=== PATIENT | male | born 2000 | race American Indian/Alaskan Native ===

== ENCOUNTER 2020-10-22 13:05 | Observation (INO) | payer SELFPAY ==
[2020-10-22] MEDS ORDERED: dexAMETHasone 4 MG/ML VIAL IV ONE (14:30)
[2020-10-22] MEDS ORDERED: SODIUM CHLORIDE 0.9% 1000 ML 1,000 ML IV ONE (14:30)
--- NOTE | 2020-10-22 14:36 | Emergency Department Report ---
ED ENT HPI - General Chief complaint: Sore Throat Stated complaint: SORE THROAT PAIN Time Seen by Provider: 10/22/20 14:14 Source: patient Mode of arrival: Ambulatory Limitations: No Limitations - History of Present Illness Initial comments: 19-year-old male with no past medical history. He reports 3 days of severe sore throat not relieved with any [id number] medicines. He denies fever cough chest pain or shortness of breath MD complaint: sore throat -: days(s) (3) Location: throat Severity: severe Severity scale (0 -10): 8 Quality: aching Consistency: constant Improves with: none (using throat sprays,cough drops with no improvement) Worsens with: none Associated Symptoms: pain with swallowing, sore throat. denies: fever, cough, gum swelling, toothache, discharge from ear, rhinorrhea - Related Data Allergies Allergy/AdvReac Type Severity Reaction Status Date / Time No Known Allergies Allergy Unverified 05/04/20 12:36 ED Dental HPI - General Chief complaint: Sore Throat Stated complaint: SORE THROAT PAIN Time Seen by Provider: 10/22/20 14:14 Source: patient Mode of arrival: Ambulatory Limitations: No Limitations - History of Present Illness MD complaint: sore throat, difficulty swallowing -: days(s) (3) Severity: severe Quality: aching Improves with: none Worsens with: swallowing, eating - Related Data Allergies Allergy/AdvReac Type Severity Reaction Status Date / Time No Known Allergies Allergy Unverified 05/04/20 12:36 ED Review of Systems ROS: Stated complaint: SORE THROAT PAIN Other details as noted in HPI Comment: All other systems reviewed and negative Constitutional: no symptoms reported. denies: chills, fever, malaise ENT: throat pain Respiratory: denies: cough, shortness of breath, SOB with exertion, wheezing Cardiovascular: denies: dyspnea on exertion Endocrine: denies: no symptoms reported Gastrointestinal: denies: abdominal pain, nausea, vomiting, diarrhea, constipation, hematemesis, melena Genitourinary: testicular pain (02). denies: urgency, dysuria, frequency, hematuria Skin: denies: rash, lesions ED Past Medical Hx - Past Medical History Previous Medical History?: No - Surgical History Past Surgical History?: No - Social History Smoking Status: Never Smoker Substance Use Type: None ED Physical Exam - General Limitations: No Limitations General appearance: alert, in no apparent distress - Head Head exam: Absent: atraumatic - Eye Eye exam: Present: normal appearance - ENT ENT exam: Present: mucous membranes moist, TM's normal bilaterally, other (Left pharynx enlarged erythemic unable to visualize the posterior pharynx phalanx or uvula) - Neck Neck exam: Present: lymphadenopathy - Respiratory Respiratory exam: Present: normal lung sounds bilaterally - Cardiovascular Cardiovascular Exam: Present: regular rate, normal heart sounds - Extremities Exam Extremities exam: Present: normal inspection - Back Exam Back exam: Present: normal inspection ED Course Vital Signs 10/22/20 13:29 Temperature 99.2 F Pulse Rate 70 Respiratory 20 Rate Blood Pressure 145/81 [Right] O2 Sat by Pulse 99 Oximetry Critical care attestation.: If time is entered above; I have spent that time in minutes in the direct care of this critically ill patient, excluding procedure time. ED Disposition Condition: Stable
[2020-10-22] MEDS ORDERED: AMPICILLIN/SULBACTA 3GM/100ML 3 GM/100 ML BAG IV ONE (15:02)
[2020-10-22] MEDS ORDERED: dexAMETHasone 20 MG/5 ML VIAL IV ONE (15:27)
[2020-10-22] MEDS ORDERED: KETOROLAC 30 MG/1 ML INJ IV ONE (15:27)
[2020-10-22] MEDS ORDERED: MORPHINE 4 MG/1 ML INJ IV ONE ×2 (15:28→17:47)
[2020-10-22] MEDS ORDERED: ONDANSETRON 4 MG/2 ML INJ IV ONE (15:28)
--- NOTE | 2020-10-22 15:33 | Emergency Department Report ---
ED ENT HPI - General Chief complaint: Sore Throat Stated complaint: SORE THROAT PAIN Time Seen by Provider: 10/22/20 14:14 Source: patient Mode of arrival: Ambulatory Limitations: No Limitations - History of Present Illness Initial comments: 19-year-old male with no significant past medical history presents to the hospital planing of throat pain for the last 3 days. Patient was initially seen by the midlevel but then care was transferred to myself due to suspected peritonsillar abscess. Patient denies fever. Pain is worse in the left side of the throat. No trauma reported. Patient is having difficulty speaking and having difficulty swallowing his saliva and difficulty with p.o. intake MD complaint: sore throat, difficulty swallowing Location: throat Severity: severe Improves with: none Worsens with: none Associated Symptoms: pain with swallowing, sore throat. denies: fever, cough, gum swelling, toothache, discharge from ear, rhinorrhea - Related Data Allergies Allergy/AdvReac Type Severity Reaction Status Date / Time No Known Allergies Allergy Verified 10/22/20 15:05 ED Dental HPI - General Chief complaint: Sore Throat Stated complaint: SORE THROAT PAIN Time Seen by Provider: 10/22/20 14:14 Source: patient Mode of arrival: Ambulatory Limitations: No Limitations - History of Present Illness MD complaint: sore throat, difficulty swallowing Severity: severe Improves with: none Worsens with: swallowing, eating - Related Data Allergies Allergy/AdvReac Type Severity Reaction Status Date / Time No Known Allergies Allergy Verified 10/22/20 15:05 ED Review of Systems ROS: Stated complaint: SORE THROAT PAIN Other details as noted in HPI Comment: All other systems reviewed and negative ED Past Medical Hx - Past Medical History Previous Medical History?: No - Surgical History Past Surgical History?: No - Social History Smoking Status: Never Smoker Substance Use Type: None ED Physical Exam - General Limitations: No Limitations General appearance: alert, in no apparent distress - Other Other exam information: General: No acute distress Head: Atraumatic Eyes: normal appearance ENT: Moist mucous membranes, tenderness to the left cervical nodes. Positive trismus. Muffled voice with difficulty speaking. Uvula swollen and midline with mild deviation to the right for left-sided swelling. Exudate noted on left tonsil. No stridor Neck: Normal appearance, no midline tenderness Chest: Clear to auscultation bilaterally CV: Regular rate and rhythm Abdomen: Soft, normal bowel sounds, nontender, nondistended, no rebound or guarding Back: Normal inspection Extremity: Normal inspection, full range of motion Neuro: Alert O x 3, no facial asymmetry, speech clear, no gross motor sensory deficit Psych: Appropriate behavior Skin: No rash ED Course Vital Signs 10/22/20 13:29 Temperature 99.2 F Pulse Rate 70 Respiratory 20 Rate Blood Pressure 145/81 [Right] O2 Sat by Pulse 99 Oximetry ED Medical Decision Making - Lab Data Result diagrams: 10/22/20 15:02 10/22/20 15:02 Lab Results 10/22/20 10/22/20 Range/Units 15:02 15:02 WBC 12.3 H (4.5-11.0) K/mm3 RBC 4.19 (3.65-5.03) M/mm3 Hgb 14.4 (11.8-15.2) gm/dl Hct 42.6 (35.5-45.6) % MCV 102 H (84-94) fl MCH 34 H (28-32) pg MCHC 34 (32-34) % RDW 12.1 L (13.2-15.2) % Plt Count 240 (140-440) K/mm3 Sodium 137 (137-145) mmol/L Potassium 4.0 (3.6-5.0) mmol/L Chloride 99.5 (98-107) mmol/L Carbon Dioxide 27 (22-30) mmol/L Anion Gap 15 mmol/L BUN 11 (9-20) mg/dL Creatinine 0.8 (0.8-1.3) mg/dL Estimated GFR > 60 ml/min BUN/Creatinine Ratio 14 % Glucose 98 (75-100) mg/dL Calcium 9.9 (8.4-10.2) mg/dL - Radiology Data Radiology results: report reviewed NECK CT 10/22/2020 HISTORY: Neck pain. Difficulty talking. FINDINGS: Contrast enhanced CT images of the soft tissues of the neck were obtained. Images are evaluated in the axial, coronal, and sagittal plane. There is prominent lymphoid hyperplasia in the left tonsillar region, with some additional evidence of edema involving posterior nasopharynx and soft palate. Mucosal thickening extends downward along the left lateral supraglottic region, with obscuration of the left vallecula and piriform sinus region. There appears to be some edema which extends into the left aryepiglottic fold. There is no definite evidence of fluid collection/abscess.. Prominent left-sided cervical adenopathy is noted, with numerous bulky lymph nodes present in the submandibular and jugulodigastric regions. IMPRESSION: 1. Extensive left tonsillar lymphoid hyperplasia, with mucosal thickening extending along the left lateral wall of the pharynx to the level of the area epiglottic fold. 2. no definite evidence of fluid collection. 3. Prominent cervical adenopathy. - Medical Decision Making She has significant swelling in difficulty speaking and spitting in the bed instead of swallow his secretions. CT confirms tonsillar as well as posterior pharyngeal swelling down to the supraglottic area. There is not an abscess present at this time. Patient will be admitted for IV antibiotics or steroids to assist with swelling and treatment of infection. Patient received Decadron, IV Unasyn, and NS in the ED strep neg Critical Care Time: No Critical care attestation.: If time is entered above; I have spent that time in minutes in the direct care of this critically ill patient, excluding procedure time. ED Disposition Clinical Impression: Tonsillitis, Pharyngeal edema Disposition: OP ADMIT IP TO THIS HOSP Is pt being admited?: Yes Condition: Stable Time of Disposition: 17:57 (Dr herrera/hospitalist)
[2020-10-22 15:44] LABS: BUN/Creatinine Ratio 14; Blood Urea Nitrogen 11 mg/dL (9-20); Calcium 9.9 mg/dL (8.4-10.2); Hemolysis Index 23
[2020-10-22 15:51] LABS: Hematocrit 42.6 % (35.5-45.6); Hemoglobin 14.4 gm/dl (11.8-15.2); Mean Corpuscular HGB Conc 34 % (32-34); Mean Corpuscular Volume 102 fl (84-94); Platelet Count 240 K/mm3 (140-440); Red Blood Count 4.19 M/mm3 (3.65-5.03); Red Cell Distribution Width 12.1 % (13.2-15.2)
--- NOTE | 2020-10-22 17:04 | Cat Scan Report ---
NECK CT 10/22/2020 HISTORY: Neck pain. Difficulty talking. FINDINGS: Contrast enhanced CT images of the soft tissues of the neck were obtained. Images are evalu ated in the axial, coronal, and sagittal plane. There is prominent lymphoid hyperplasia in the left tonsillar region, with some additional evidence o f edema involving posterior nasopharynx and soft palate. Mucosal thickening extends downward along th e left lateral supraglottic region, with obscuration of the left vallecula and piriform sinus region. There appears to be some edema which extends into the left aryepiglottic fold. There is no definite evidence of fluid collection/abscess.. Prominent left-sided cervical adenopathy is noted, with numerous bulky lymph nodes present in the sub mandibular and jugulodigastric regions. IMPRESSION: 1. Extensive left tonsillar lymphoid hyperplasia, with mucosal thickening extending along the left la teral wall of the pharynx to the level of the area epiglottic fold. 2. no definite evidence of fluid collection. 3. Prominent cervical adenopathy. All CT scans at this location are performed using dose reduction to ALARA by means of automated expos ure control. Signer Name: Vishal Reddy MD Signed: 10/22/2020 5:00 PM Workstation Name: [id number]
[2020-10-22] MEDS: HYDROmorphone 1 MG/1 ML INJ IV PRN ×3 (17:58→23:39)
[2020-10-22] MEDS ORDERED: HYDROmorphone 1 MG/1 ML INJ ONE (20:25)
[2020-10-22] MEDS ORDERED: MORPHINE 4 MG/1 ML INJ ONE (20:25)
[2020-10-22] MEDS ORDERED: METOCLOPRAMIDE 10 MG/2 ML INJ IV PRN (20:55)
[2020-10-22] MEDS ORDERED: ACETAMINOPHEN 325 MG TAB PO PRN (20:55)
[2020-10-22] MEDS ORDERED: oxyCODONE /ACETAMINOPHEN 5-325MG TAB PO PRN (20:55)
[2020-10-22] MEDS ORDERED: ONDANSETRON 4 MG/2 ML INJ IV PRN (20:55)
[2020-10-22] MEDS ORDERED: cefTRIAXone/NS 2 GM/100 ML 2 GM/100 ML BAG IV SCH (21:00)
--- NOTE | 2020-10-22 21:01 | History and Physical Report ---
History of Present Illness Date of examination: 10/22/20 Date of admission: 10/22/20 17:58 Chief complaint: Sore throat for 3 days History of present illness: - History of Present Illness: 19-year-old male with no significant past medical history comes in for sore t hroat and difficulty swallowing. This is been going on for the last 3 days. Pain is about 7 on a scale of 1-10. And swallowing is painful. Also has difficulty swallowing. Also running fever off and on. No nausea vomiting. No exposure to coronavirus. - Past Medical History Previous Medical History?: No - Surgical History Past Surgical History?: No - Social History Smoking Status: Never Smoker Substance Use Type: None -- Family history Htn Review of Systems ROS: Stated complaint: SORE THROAT PAIN Other details as noted in HPI Comment: All other systems reviewed and negative Medications and Allergies Allergies Allergy/AdvReac Type Severity Reaction Status Date / Time No Known Allergies Allergy Verified 10/22/20 15:05 Active Meds: Active Medications Hydromorphone HCl (Dilaudid) 0.5 mg IV Q3H PRN PRN Reason: Pain , Severe (7-10) Last Admin: 10/22/20 17:58 Dose: 0.5 mg Documented by: Exam - Constitutional Vitals: Temp Pulse Resp BP Pulse Ox 99.2 F 70 20 145/81 99 10/22/20 13:29 10/22/20 13:29 10/22/20 13:29 10/22/20 13:29 10/22/20 13:29 General appearance: Present: mild distress, well-nourished - EENT Eyes: Present: PERRL ENT: hearing intact, clear oral mucosa, oropharyngeal erythema, other (Tonsils swollen and nearly meeting in midline, inflamed and red) - Neck Neck: Present: supple, normal ROM - Respiratory Respiratory effort: normal Respiratory: bilateral: CTA - Cardiovascular Heart rate: 98 Rhythm: regular Heart Sounds: Present: S1 & S2. Absent: rub, click - Extremities Extremities: no ischemia, pulses intact, pulses symmetrical, No edema Peripheral Pulses: within normal limits - Abdominal General gastrointestinal: Present: soft, non-tender, non-distended, normal bowel sounds Male genitourinary: Present: normal - Integumentary Integumentary: Present: clear, warm, dry - Musculoskeletal Musculoskeletal: gait normal, strength equal bilaterally - Psychiatric Psychiatric: appropriate mood/affect, intact judgment & insight - Neurologic Neurologic: CNII-XII intact, moves all extremities Results - Labs CBC & Chem 7: 10/22/20 15:02 10/22/20 15:02 Labs: Laboratory Last Values WBC 12.3 K/mm3 (4.5-11.0) H 10/22/20 15:02 RBC 4.19 M/mm3 (3.65-5.03) 10/22/20 15:02 Hgb 14.4 gm/dl (11.8-15.2) 10/22/20 15:02 Hct 42.6 % (35.5-45.6) 10/22/20 15:02 MCV 102 fl (84-94) H 10/22/20 15:02 MCH 34 pg (28-32) H 10/22/20 15:02 MCHC 34 % (32-34) 10/22/20 15:02 RDW 12.1 % (13.2-15.2) L 10/22/20 15:02 Plt Count 240 K/mm3 (140-440) 10/22/20 15:02 Sodium 137 mmol/L (137-145) 10/22/20 15:02 Potassium 4.0 mmol/L (3.6-5.0) 10/22/20 15:02 Chloride 99.5 mmol/L (98-107) 10/22/20 15:02 Carbon Dioxide 27 mmol/L (22-30) 10/22/20 15:02 Anion Gap 15 mmol/L 10/22/20 15:02 BUN 11 mg/dL (9-20) 10/22/20 15:02 Creatinine 0.8 mg/dL (0.8-1.3) 10/22/20 15:02 Estimated GFR > 60 ml/min 10/22/20 15:02 BUN/Creatinine Ratio 14 % 10/22/20 15:02 Glucose 98 mg/dL (75-100) 10/22/20 15:02 Calcium 9.9 mg/dL (8.4-10.2) 10/22/20 15:02 Group A Strep Rapid Negative (Negative) 10/22/20 17:46 Briggs/IV: IV Catheter Type [Left INT / Saline Lock Antecubital] Assessment and Plan Advance Directives: Yes (Full code) VTE prophylaxis?: Chemical Plan of care discussed with patient/family: Yes - Patient Problems (1) SIRS (systemic inflammatory response syndrome) Current Visit: Yes Status: Acute Plan to address problem: Increased white count and high temperature and tachycardia consistent with Sirs (2) Acute bacterial tonsillitis Current Visit: Yes Status: Acute Plan to address problem: Patient initiated on IV ceftriaxone 2 g IV piggyback every 24 Also initiated on IV Decadron every 8 milligrams every 8 hours to decrease tonsillar swelling and decrease the dysphagia (3) DVT prophylaxis Current Visit: Yes Status: Acute Plan to address problem: On heparin 5000 subcu every 12 and GI prophylaxis (4) Discharge planning issues Current Visit: Yes Status: Acute Plan to address problem: Patient admitted in observation status Change to inpatient if patient needs to stay more than 24 hours
[2020-10-22] MEDS ORDERED: cefTRIAXone/NS 2 GM/100 ML 2 GM/100 ML BAG IV ONE (21:59)
[2020-10-22] MEDS: dexAMETHasone 4 MG/ML VIAL IV SCH (23:24)
[2020-10-22] MEDS: FAMOTIDINE 20 MG/2 ML INJ IV SCH (23:24)
[2020-10-23] MEDS: SODIUM CHLORIDE 0.9% 1000 ML 1,000 ML IV SCH ×2 (01:00→08:35)
[2020-10-23] MEDS: dexAMETHasone 4 MG/ML VIAL IV SCH ×2 (06:06→13:39)
[2020-10-23 08:05] LABS: Hematocrit 40.3 % (35.5-45.6); Hemoglobin 13.6 gm/dl (11.8-15.2); Mean Corpuscular HGB Conc 34 % (32-34); Mean Corpuscular Volume 104 fl (84-94); Platelet Count 217 K/mm3 (140-440); Red Blood Count 3.89 M/mm3 (3.65-5.03)
[2020-10-23 08:25] LABS: Alanine Aminotransferase 14 units/L (7-56); Albumin 4.2 g/dL (3.9-5); BUN/Creatinine Ratio 19; Blood Urea Nitrogen 15 mg/dL (9-20); Calcium 9.6 mg/dL (8.4-10.2); Hemolysis Index 5
[2020-10-23] MEDS ORDERED: VANCOMYCIN 1,250 MG in SODIUM CHLORIDE 0.9% 250ML 250 ML IV ONE (08:45)
[2020-10-23] MEDS ORDERED: VANCOMYCIN PHARMACY TO DOSE IV SCH (09:00)
[2020-10-23] MEDS: AMPICILLIN/SULBACTA 3GM/100ML 3 GM/100 ML BAG IV SCH ×2 (10:31→13:34)
[2020-10-23] MEDS: FAMOTIDINE 20 MG/2 ML INJ IV SCH (10:31)
--- NOTE | 2020-10-23 10:46 | Discharge Summary ---
Providers - Providers Date of Admission: 10/22/20 17:58 Date of discharge: 10/23/20 Attending physician: DEDRICK MCRAE Primary care physician: [employer] Hospitalization Condition: Stable Hospital course: 19-year-old male with a medical history admitted with chief complaint of sore throat and difficulty swallowing. Patient also notes difficulty with swallowing saliva. He states symptoms started 3 days prior to presentation. Due to concern for possible third peritonsillar abscess, patient was admitted to the hospital for further evaluation. CT neck performed showed extensive left tonsillar lymphoid hyperplasia with possible thickening with no fluid collection. Patient was started on IV antibiotics and placed on observation. This a.m., patients symptom has significantly improved. Patient is able to tolerate oral diet. He denies any difficulty swallowing, dyspnea or neck pain /trismus. No reported fever overnight. His strep A test was negative. Coronavirus test was negative. Patient will be discharged on Augmentin for total of 10 days. He has been advised to follow-up with ENT doctor or primary medical physician. He has been advised to return to the hospital if symptoms recur. He is currently stable to be discharged today Disposition: DC-01 TO HOME OR SELFCARE - Discharge Diagnoses (1) Acute bacterial tonsillitis Status: Acute Core Measure Documentation - Palliative Care Palliative Care/ Comfort Measures: Not Applicable - Core Measures Any of the following diagnoses?: none Exam - Constitutional Vitals: Temp Pulse Resp BP Pulse Ox 97.4 F L 59 L 18 127/62 100 10/23/20 08:41 10/23/20 08:41 10/23/20 08:41 10/23/20 08:41 10/23/20 08:41 General appearance: Present: no acute distress, well-nourished - EENT Eyes: Present: PERRL ENT: other (No uvula deviation, has whitish patches around the left tonsils. ) - Neck Neck: Present: supple, normal ROM - Respiratory Respiratory effort: normal Respiratory: bilateral: CTA - Cardiovascular Heart Sounds: Present: S1 & S2. Absent: rub, click - Extremities Extremities: pulses symmetrical, No edema Peripheral Pulses: within normal limits - Abdominal General gastrointestinal: Present: soft, non-tender, non-distended, normal bowel sounds Male genitourinary: Present: normal - Integumentary Integumentary: Present: clear, warm, dry - Musculoskeletal Musculoskeletal: gait normal, strength equal bilaterally - Psychiatric Psychiatric: appropriate mood/affect, intact judgment & insight - Neurologic Neurologic: CNII-XII intact, moves all extremities Plan Additional Instructions: Complete antibiotics in 10 days Follow up with: PRIMARY CARE,MD [Primary Care Provider] - 7 Days Prescriptions: Amoxicillin/Potassium Clav [Augmentin 875-125 Tablet] 1 each PO BID #20 tablet methylPREDNISolone [Medrol] 4 mg PO BID #6 tablet methylPREDNISolone [Medrol] 4 mg PO Q24HR #4 tablet
[2020-10-23 11:11] LABS: Total Cells Counted 100
[2020-10-23 11:13] LABS: Basophils % (Manual) 0 % (0.0-1.8); Eosinophils % (Manual) 0 % (0.0-4.3); Giant Platelets Few; Platelet Estimate Consistent w Auto; RBC Morphology Normal
[2020-10-23 12:30] VITALS: BP 115/59
[2020-10-23] MEDS ORDERED: VANCOMYCIN/NS 1 GM/250 ML 1 GM/250 ML BAG IV SCH (19:00)
== END 2020-10-23 16:00 | disposition home or self-care (01) ==
LOC: ED 13:05 → 4A 17:58
PROVIDERS: ADMIT Internal Medicine; ATTEND Internal Medicine
DX: J03.80 Acute tonsillitis due to other specified organisms (principal); B96.89 Other specified bacterial agents as the cause of diseases classified elsewhere; R65.10 Systemic inflammatory response syndrome (SIRS) of non-infectious origin without acute organ dysfunction
CPT/HCPCS: 36415; 70491; 80048; 80053; 83036; 85025; 85027; 87116; 87430; 96361; 96365; 96366; 96367; 96368; 96375; 96376; 99285; G0378; J0295; J0696; J1100; J1170; J1885; J2270; J2405; J3370; J7030; J7050; Q9967; 85007; 99406

== ENCOUNTER 2020-12-28 22:00 | Emergency (ER) | payer SELFPAY ==
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
[2020-12-28] MEDS ORDERED: LIDOCAINE-MPF (1%) 10 MG/1 ML VIAL 5 ML INFILTRATI ONE (22:14)
[2020-12-28] MEDS ORDERED: DIPHtheria,PERTUSSIS(ACELL),TETANUS VACCINE/PF 0.5 ML VIAL IM ONE (22:16)
[2020-12-28 22:23] VITALS: BP 134/72
[2020-12-28] MEDS ORDERED: NEOMY 3.5 MG/BACIT 400 UNITS/POLY B 5000 UNITS/GM OINT PACKET TP ONE (22:23)
[2020-12-28 23:22] LABS: Bilirubin,Urine NEG (Negative); Blood,Urine NEG (Negative); Color,Urine Yellow (Yellow); Mucus,Urine 2+ /HPF
[2020-12-28 23:36] LABS: WBC,Urine > 182.0 /HPF (0.0-6.0)
== END 2020-12-28 23:32 | disposition home or self-care (01) ==
LOC: ED 22:00
DX: S61.411A Laceration without foreign body of right hand, initial encounter (principal); N34.2 Other urethritis; Z20.2 Contact with and (suspected) exposure to infections with a predominantly sexual mode of transmission; F17.200 Nicotine dependence, unspecified, uncomplicated; Z79.899 Other long term (current) drug therapy; W45.8XXA Other foreign body or object entering through skin, initial encounter; Y93.89 Activity, other specified; Y92.89 Other specified places as the place of occurrence of the external cause; Y99.8 Other external cause status
CPT/HCPCS: 81001; 90471; 90715; 96372; 99283; A6250; J0696

== ENCOUNTER 2021-08-27 22:48 | Emergency (ER) | payer SELFPAY ==
--- NOTE | 2021-08-27 23:55 | Emergency Department Report ---
- General Chief Complaint: Upper Respiratory Infection Stated Complaint: BAD COUGH Source: patient Mode of arrival: Ambulatory Limitations: No Limitations - History of Present Illness Initial Comments: Patient is a 20-year-old -[place] male with no past medical history presents to the ED with complaint of acute onset persistent nasal and sinus congestion, persistent dry cough, frontal sinus headache and lack of appetite with diffuse body aches and pains for the last 2 days. Patient states that no one else at home is at similar symptoms except he is going children that had similar symptoms. Patient denies dizziness, syncope, nausea, vomiting, chest pain, shortness of breath, abdominal pain, diarrhea, dysuria, urinary frequency and urgency, back pain, hematemesis or hematochezia. MD Complaint: cough, rhinorrhea, nasal congestion, sinus pain -: Sudden, days(s) (2) Severity: moderate Severity scale (0 -10): 4 Quality: aching Consistency: constant Improves With: nothing Worsens With: nothing Context: sick contacts Associated Symptoms: denies other symptoms, rhinorrhea, nasal congestion, cough. denies: fever, chills, myalgias, headache, sore throat, stiff neck, chest pain, abdominal pain, nausea, vomiting, diarrhea, dysuria, rash, confusion, weight loss, epistaxis, hoarseness, ear pain Treatments Prior to Arrival: none - Related Data Previous Rx's Medication Instructions Recorded Last Taken Type Amoxicillin/Potassium Clav 1 each PO BID #20 tablet 10/23/20 Unknown Rx [Augmentin 875-125 Tablet] methylPREDNISolone [Medrol] 4 mg PO BID #6 tablet 10/23/20 Unknown Rx methylPREDNISolone [Medrol] 4 mg PO Q24HR #4 tablet 10/23/20 Unknown Rx DOXYCYCLINE Hyclate [Vibramycin 100 mg PO Q12HR #20 capsule 12/28/20 Unknown Rx CAP] Azithromycin [Zithromax Z-KANDY] 250 mg PO DAILY #6 tablet 08/28/21 Unknown Rx Brompheniramine/Pseudoephed/Dm 5 ml PO Q6H PRN #118 ml 08/28/21 Unknown Rx [Bromfed Dm Cough Syrup] Cetirizine HCl [Zyrtec 10mg tab] 10 mg PO DAILY #30 tablet 08/28/21 Unknown Rx predniSONE [Deltasone] 40 mg PO QDAY #10 tab 08/28/21 Unknown Rx Allergies Allergy/AdvReac Type Severity Reaction Status Date / Time No Known Allergies Allergy Verified 08/27/21 23:51 ED Review of Systems ROS: Stated complaint: BAD COUGH Other details as noted in HPI Constitutional: denies: chills, fever Eyes: denies: eye pain, eye discharge, vision change ENT: congestion. denies: ear pain, throat pain Respiratory: cough. denies: shortness of breath, wheezing Cardiovascular: denies: chest pain, palpitations Endocrine: no symptoms reported Gastrointestinal: denies: abdominal pain, nausea, diarrhea Genitourinary: denies: urgency, dysuria Musculoskeletal: denies: back pain, joint swelling, arthralgia Skin: denies: rash, lesions Neurological: denies: headache, weakness, paresthesias Psychiatric: denies: anxiety, depression Hematological/Lymphatic: denies: easy bleeding, easy bruising ED Past Medical Hx - Past Medical History Hx Congestive Heart Failure: No Hx Diabetes: No Hx Asthma: No Hx COPD: No - Social History Smoking Status: Current Some Day Smoker - Medications Home Medications: Home Medications Medication Instructions Recorded Confirmed Last Taken Type Amoxicillin/Potassium Clav 1 each PO BID #20 tablet 10/23/20 Unknown Rx [Augmentin 875-125 Tablet] methylPREDNISolone [Medrol] 4 mg PO BID #6 tablet 10/23/20 Unknown Rx methylPREDNISolone [Medrol] 4 mg PO Q24HR #4 tablet 10/23/20 Unknown Rx DOXYCYCLINE Hyclate [Vibramycin 100 mg PO Q12HR #20 capsule 12/28/20 Unknown Rx CAP] Azithromycin [Zithromax Z-KANDY] 250 mg PO DAILY #6 tablet 08/28/21 Unknown Rx Brompheniramine/Pseudoephed/Dm 5 ml PO Q6H PRN #118 ml 08/28/21 Unknown Rx [Bromfed Dm Cough Syrup] Cetirizine HCl [Zyrtec 10mg tab] 10 mg PO DAILY #30 tablet 08/28/21 Unknown Rx predniSONE [Deltasone] 40 mg PO QDAY #10 tab 08/28/21 Unknown Rx ED Physical Exam - General Limitations: No Limitations General appearance: alert, in no apparent distress - Head Head exam: Present: atraumatic, normocephalic, normal inspection - Eye Eye exam: Present: normal appearance, PERRL, EOMI Pupils: Present: normal accommodation - ENT ENT exam: Present: normal orophraynx, mucous membranes moist, normal external ear exam, other (Grossly congested nasal passages) - Neck Neck exam: Present: normal inspection, full ROM - Respiratory Respiratory exam: Present: normal lung sounds bilaterally. Absent: respiratory distress, wheezes, rales, stridor, chest wall tenderness, accessory muscle use, decreased breath sounds, prolonged expiratory - Cardiovascular Cardiovascular Exam: Present: regular rate, normal rhythm, normal heart sounds. Absent: systolic murmur, diastolic murmur, rubs, gallop - GI/Abdominal GI/Abdominal exam: Present: soft, normal bowel sounds. Absent: tenderness, guarding, rebound, hyperactive bowel sounds, hypoactive bowel sounds, organomegaly - Extremities Exam Extremities exam: Present: normal inspection, full ROM, normal capillary refill - Back Exam Back exam: Present: normal inspection, full ROM. Absent: tenderness, CVA tenderness (R), CVA tenderness (L), muscle spasm, paraspinal tenderness, vertebral tenderness - Neurological Exam Neurological exam: Present: alert, oriented X3, CN II-XII intact, normal gait, reflexes normal - Psychiatric Psychiatric exam: Present: normal affect, normal mood - Skin Skin exam: Present: warm, dry, intact, normal color. Absent: rash ED Course Vital Signs 08/27/21 23:53 Temperature 97.7 F Pulse Rate 60 Respiratory 19 Rate Blood Pressure 129/76 O2 Sat by Pulse 97 Oximetry ED Medical Decision Making - Radiology Data Radiology results: report reviewed, image reviewed [address] [address] XRay Report Signed Patient: MARIO DODSON MR#: [id number] : 2000 Acct:[id number] Age/Sex: 20 / M ADM Date: 08/27/21 Loc: ED Attending Dr: Ordering Physician: ESTRELLITA DAVIS Date of Service: 08/27/21 Procedure(s): XR chest routine 2V Accession Number(s): [id number] cc: ESTRELLITA DAVIS Fluoro Time In Minutes: CHEST 2 VIEWS INDICATION / CLINICAL INFORMATION: COUGH. COMPARISON: None available. FINDINGS: SUPPORT DEVICES: None. HEART / MEDIASTINUM: No significant abnormality. LUNGS / PLEURA: No significant pulmonary or pleural abnormality. No pneumothorax. ADDITIONAL FINDINGS: No significant additional findings. IMPRESSION: 1. No acute findings. Signer Name: Collin Romero MD Signed: 08/28/2021 12:23 AM Workstation Name: [id number] Transcribed By: TL Dictated By: Collin Romero MD Electronically Authenticated By: Collin Romero MD Signed Date/Time: 08/28/2122 DD/ TD/TT: Print Cancel - Medical Decision Making This is a 20-year-old -[place] male with no past medical history presents to the ED with complaint of acute onset persistent nasal and sinus congestion, persistent dry cough, frontal sinus headache and lack of appetite with diffuse body aches and pains for the last 2 days. Patient states that no one else at home is at similar symptoms except he is going children that had similar symptoms. In the ED, patient is alert and oriented x3 and is not in any distress with normal vital signs. Chest x-ray showed no acute cardiopulmonary abnormalities or pneumonitis. Patient symptoms are likely due to upper respiratory infection versus bronchitis or sinusitis. Patient was therefore discharged home on medications and advised to follow-up with his primary care physician in 7 to 10 days for reevaluation. Patient was advised to return to the ED immediately if symptoms get worse. - Differential Diagnosis URI; bronchitis; pneumonia; COVID-19; strep pharyngitis; Critical care attestation.: If time is entered above; I have spent that time in minutes in the direct care of this critically ill patient, excluding procedure time. ED Disposition Clinical Impression: Acute upper respiratory infection Acute bronchitis Qualifiers: Bronchitis organism: other organism Qualified Code(s): J20.8 - Acute bronchitis due to other specified organisms Disposition: 01 HOME / SELF CARE / HOMELESS Is pt being admited?: No Does the pt Need Aspirin: No Condition: Stable Instructions: Acute Bronchitis, Adult, [id number], Upper Respiratory Infection, Adult, [id number], Acute Bronchitis (ED) Additional Instructions: Chest x-ray showed no acute cardiopulmonary abnormalities or pneumonitis. Therefore take medication as advised, drink plenty of fluids and follow-up with your primary care physician in 7 to 10 days for reevaluation. Return to the ED immediately if symptoms get worse Prescriptions: Brompheniramine/Pseudoephed/Dm [Bromfed Dm Cough Syrup] 5 ml PO Q6H PRN #118 ml PRN Reason: Cough predniSONE [Deltasone] 40 mg PO QDAY #10 tab Azithromycin [Zithromax Z-KANDY] 250 mg PO DAILY #6 tablet Cetirizine HCl [Zyrtec 10mg tab] 10 mg PO DAILY #30 tablet Referrals: [facility] [Provider Group] - 3-5 Days Forms: Work/School Release Form(ED) Time of Disposition: 00:35 Print Language: ALBANIAN
[2021-08-27 23:56] VITALS: BP 129/76
--- NOTE | 2021-08-28 00:27 | XRay Report ---
CHEST 2 VIEWS INDICATION / CLINICAL INFORMATION: COUGH. COMPARISON: None available. FINDINGS: SUPPORT DEVICES: None. HEART / MEDIASTINUM: No significant abnormality. LUNGS / PLEURA: No significant pulmonary or pleural abnormality. No pneumothorax. ADDITIONAL FINDINGS: No significant additional findings. IMPRESSION: 1. No acute findings. Signer Name: Collin Romero MD Signed: 08/28/2021 12:23 AM Workstation Name: [id number]
== END 2021-08-28 00:55 | disposition home or self-care (01) ==
LOC: ED 22:48
DX: J06.9 Acute upper respiratory infection, unspecified (principal); J20.8 Acute bronchitis due to other specified organisms; F17.200 Nicotine dependence, unspecified, uncomplicated; Z79.899 Other long term (current) drug therapy
CPT/HCPCS: 71046; 99283